=== PATIENT | male | born 1995 | race Hispanic/Latino ===

== ENCOUNTER 2017-03-22 21:48 | Emergency (ER) | payer OTHER ==
[~2017-03-22] VITALS: Ht 170.2 cm; Wt 81.6 kg
[2017-03-22] MEDS ORDERED: IBUP200C PO (22:16)
[2017-03-22 23:41] VITALS: BP 141/71
== END 2017-03-23 00:36 | disposition home or self-care (01) ==
LOC: M ED 23:04
DX: H11.32 Conjunctival hemorrhage, left eye (principal); W19.XXXA Unspecified fall, initial encounter; Y92.89 Other specified places as the place of occurrence of the external cause; Y93.89 Activity, other specified; Y99.9 Unspecified external cause status